=== PATIENT | male | born 1970 | race African-American/Black ===

== ENCOUNTER 2021-11-24 13:52 | Outpatient (CLI) | payer OTHER, SELFPAY ==
--- NOTE | ~2021-11-24 | MM_ITS ---
EXAMINATION: MM diagnostic mammo unilat LT HISTORY: Subareolar left breast pain TECHNIQUE: Full field digital craniocaudal and mediolateral oblique views of the left breast were obt ained. Mediolateral oblique view of the right breast is obtained for comparison. CAD analysis was sub mitted and interpreted. COMPARISON: No prior mammogram is available for comparison at this institution. BREAST PARENCHYMAL COMPOSITION: The breasts are almost entirely fatty. FINDINGS: There is flame-shaped subareolar tissue in the left breast which has the appearance of gyne comastia. No suspicious mass, calcification, or architectural distortion are identified IMPRESSION: 1. No mammographic findings consistent with asymmetric gynecomastia of the left breast. Continued cli nical examination is recommended. BI-RADS Category 2: Benign finding(s). Reviewed, dictated and finalized at location A. IMPRESSION: 1. No mammographic findings consistent with asymmetric gynecomastia of the left breast. Continued clinical examination is recommended. BI-RADS Category 2: Benign finding(s).
== END 2021-11-24 13:53 | disposition home or self-care (01) ==
LOC: ANHIMG 13:58
PROVIDERS: PCP Physician Assistant; Visit Provider Physician Assistant
DX: R92.8 Other abnormal and inconclusive findings on diagnostic imaging of breast (principal); N62 Hypertrophy of breast; N64.4 Mastodynia
CPT/HCPCS: 77065